=== PATIENT | male | born 1955 | race Caucasian/White ===

== ENCOUNTER 2016-08-20 09:28 | Day surgery (SDC) | payer OTHER ==
[~2016-08-20] VITALS: Ht 175.3 cm; Wt 99.0 kg
[~2016-08-20 09:28] MED LIST: ALLEGRA60 MG PO; EMERGEN-C 1,01000 MG PO; FLONASE16 G1 BOTH NARES; LOSARTAN-HCTZ1 EACH PO; PROTONIX40 MG PO; XANAX0.25 MG PO
[2016-08-20 10:01] VITALS: BP 144/82
[2016-08-20 10:30] LABS: ANION GAP 8 MEQ/L (2-14); CHLORIDE 102 MEQ/L (99-109); GFR ESTIMATE (CALCULATED) > 59 mL/min/; GLUCOSE 90 mg/dL (70-99); POTASSIUM 3.7 MEQ/L (3.7-5.4); SAMPLE HEMOLYSIS CHECK 0; SAMPLE ICTERIC CHECK 0; SAMPLE LIPEMIA CHECK 0; SODIUM 140 MEQ/L (136-147); UREA NITROGEN (BUN) 15 mg/dL (9-23)
[2016-08-20] MEDS ORDERED: NORCO 5/3251 TABLET PO (12:35)
[2016-08-20 13:15] VITALS: BP 134/83
[2016-08-20 14:32] VITALS: BP 110/82
== END 2016-08-20 14:52 | disposition home or self-care (01) ==
LOC: SDC 09:28
PROVIDERS: Surgery
DX: K80.10 Calculus of gallbladder with chronic cholecystitis without obstruction (principal); K21.0 Gastro-esophageal reflux disease with esophagitis; I10 Essential (primary) hypertension; Z80.41 Family history of malignant neoplasm of ovary; Z83.79 Family history of other diseases of the digestive system
CPT/HCPCS: 74300; 80048; 88304; J1100; J1885; J2250; J2405; J2710; J3010; S0020